=== PATIENT | male | born 1985 ===

== ENCOUNTER 2018-11-19 15:44 | Emergency (ER) | payer MEDICAID ==
[~2018-11-19] VITALS: Ht 177.8 cm; Wt 75.0 kg
--- NOTE | 2018-11-19 16:06 | NUR ---
PT IS HAVING BIZARRE BEHAVIORS AND i AM UNABLE TO ASSESS FULLY.
--- NOTE | 2018-11-19 16:42 | NUR ---
PT NEEDS VITAL MONITORING IN ROOM.
--- NOTE | 2018-11-19 16:54 | NUR ---
PT REPORTS USING METH WITH SOMETHING SYNTHETIC IN IT TODAY.
--- NOTE | 2018-11-19 20:01 | NUR ---
PT'S SISTER MARILEE PT LIVES IN [facility], PT WS ON THE WAY TO [place] TO VISIT EX AND KIDS AND GOT OFF THE BUS IN [place].
[2018-11-19] MEDS ORDERED: haloperidol lactate 5mg/ml inj IM ONE (20:25)
--- NOTE | 2018-11-19 21:51 | NUR ---
PT IS RESTING LAYING SUPINE, RESPIATIONS EVEN AND NLABORED. NO DISTRESS NOTED AT THIS TIME.
--- NOTE | 2018-11-19 21:52 | NUR ---
I CALLED PT'S SISTER MARILEE. MARILEE DID NOT ANSWER AND I AM UNALE TO LEAVE A MESSAGE, IT REPORTS MAILBOX IS FULL.
[2018-11-19 22:24] VITALS: BP 101/66
== END 2018-11-19 22:19 | disposition home or self-care (01) ==
LOC: ER 15:46
DX: R00.0 Tachycardia, unspecified (principal); F15.10 Other stimulant abuse, uncomplicated; F41.0 Panic disorder [episodic paroxysmal anxiety]; F41.9 Anxiety disorder, unspecified; F12.90 Cannabis use, unspecified, uncomplicated; Z59.0 Homelessness
CPT/HCPCS: 96372; 99284; J1630